=== PATIENT | male | born 1960 | race Caucasian/White ===

== ENCOUNTER → 2019-10-17 08:15 | Outpatient (BNVA) | payer OTHER, SELFPAY | PROVIDERS: Family Provider Family Medicine; PCP Family Medicine; Visit Provider Urology | DX: N39.9 Disorder of urinary system, unspecified (principal); E29.1 Testicular hypofunction; R79.89 Other specified abnormal findings of blood chemistry | CPT/HCPCS: 81001 ==

== ENCOUNTER 2020-02-15 11:51 | Emergency (ER) | payer OTHER, SELFPAY ==
[2020-02-15 12:20] VITALS: BP 172/92; PULSE 76; RESP 14; TEMP 36.7; O2SAT 98; BMI 41.5
--- NOTE | 2020-02-15 12:39 | ED_ITS ---
HPI - General Adult General: Chief complaint: General Medical Stated complaint: FLANK AND GROIN PAIN Time Seen by Provider: 02/15/20 12:27 History of Present Illness: HPI narrative: Sudden onset earlier today of right-sided flank pain radiating around to the lower abdomen and right groin. Onset (ago): hour(s) Location: back and right Radiation: non-radiation Severity: severe Pain Consistency: constant Relieving factors: none Exacerbating factors: movement Review of Systems General: Reports: 10 or more systems reviewed and unremarkable except in HPI and below PFSH ED PFSH: Medical History Low testosterone Multiple low levels confirmed. Normal PSA. TRT initiated Surgical History History of hip replacement left History of knee surgery right History of toe surgery Hx of tonsillectomy Family History Mother History of hip surgery Father Amputation below knee Social History Smoking and tobacco status: current every day smoker Alcohol intake: never Marital status: Current occupational status: retired History of recent travel: No Physical Exam Const: COMMON NORMALS: no acute distress, average body habitus, alert and well nourished EXAM LIMITATIONS: altered mental status GENERAL APPEARANCE: well kempt and ill appearing HENMT: COMMON NORMALS: normocephalic, atraumatic, hearing grossly normal bilaterally, external ears normal, EAC's normal, TM's normal bilaterally, Normal external nose present, Normal nasal mucous membranes and turbinates present, moist oral mucous membranes, oropharynx normal, dentition normal and gingiva normal HEAD & SCALP: normocephalic and atraumatic NOSE: Normal external nose present and Normal nasal mucous membranes and turbinates present EXTERNAL EAR: Yes external ears normal EXTERNAL AUDITORY CANAL: EAC's normal TYMPANIC MEMBRANE: TM's normal bilaterally Eye: COMMON NORMALS: Equal, round and reactive pupils present, EOMs intact bilaterally, conjunctivae normal, no scleral icterus, no papilledema, normal visual barbosa by confrontation and fundi normal bilaterally CONJUNCTIVA: Yes conjunctivae normal PUPIL: Yes Equal, round and reactive pupils present DIRECT OPHTHALMOSCOPY: Yes no papilledema and Yes fundi normal bilaterally Neck/C-Spine: COMMON NORMALS: full ROM, no lymphadenopathy, supple, no meningeal signs, no JVD, Thyroid normal and No carotid bruits THYROID: Thyroid normal Chest: COMMONS NORMALS: normal inspection of the chest and normal palpation of entire chest wall Resp: COMMON NORMALS: normal respiratory effort, No retractions, No use of accessory muscles, clear to auscultation bilaterally and percussion normal AUSCULTATION: clear to auscultation bilaterally PERCUSSION: percussion normal Cardio: COMMON NORMALS: no JVD, regular rate, regular rhythm, S1 normal heart sound present, S2 normal heart sound present, No gallops present (Cardio), No clicks present (Cardio), No murmurs present (Cardio), No rub (Cardio) and Peripheral pulses 2+ throughout RATE: regular rate RHYTHM: regular rhythm HEART SOUNDS: S1 normal heart sound present and S2 normal heart sound present PERIPHERAL PULSES: Peripheral pulses 2+ throughout GI: COMMON NORMALS: Normal to inspection, nondistended, normoactive bowel sounds present, Soft to palpation, non-tender, No hepatosplenomegaly present, no masses and no bruits PALPATION: Yes Soft to palpation and Yes No hepatosplenomegaly present : BLADDER/KIDNEY EXAM: Yes CVA tenderness Back/Pelvis: GENERAL BACK: Yes CVA tenderness Extremity: COMMON NORMALS: normal to inspection, full ROM, capillary refill normal, no joint enlargement, no clubbing, cyanosis or edema, no calf tenderness and no pedal edema Neuro: SENSORIUM/ORIENTATION: Yes alert and Yes somnolent MENINGEAL SIGNS: Yes no meningeal signs Psych: APPEARANCE: Yes well kempt Skin: COMMON NORMALS: no rashes or lesions noted, no wounds, no jaundice and no mottling GENERAL SKIN EXAM: no rashes or lesions noted Course Vital Signs: Vital signs: Vital Signs Temperature 98.0 F 02/15/20 12:20 Pulse Rate 76 02/15/20 12:20 Respiratory Rate 18 02/15/20 13:07 Blood Pressure 172/92 02/15/20 12:20 Pulse Oximetry 98 02/15/20 12:20 [facility] - General Adult Lab Data: Labs: Lab Results 02/15/20 Range/Units 12:19 Urine Color Yellow (Yellow) Urine Appearance Cloudy (CLEAR) Urine pH 5 (5-7) Ur Specific Gravit y 1.025 (1.005-1.030) Urine Protein Neg (Negative) Urine Glucose (UA) 2+ (Normal) Urine Ketones 2+ H (Negative) Urine Blood 3+ H (Negative) Urine Nitrate Negative (Negative) Urine Bilirubin 1+ H (NEGATIVE) Urine Urobilinogen 1 H (Negative) mg/dL Ur Leukocyte Zunilda ase Negative (Negative) Urine RBC None (0-2) /hpf Urine WBC None (0-5) /hpf Ur Squamous Epith Cells 0-4 H (0-5) Calcium Oxalate Cr ystal 0-4 H /hpf Amorphous Sediment 3+ Urine Bacteria 2+ H (NONE) Discharge Plan Discharge Patient Disposition: Home, Self-Care Clinical Impression: Renal colic Urolithiasis Qualifiers: Urinary calculus location: bladder Qualified Code(s): N21.0 - Calculus in bladder Condition: Stable Prescriptions: New Flomax 0.4 mg capsule 0.4 mg PO DAILY Qty: 20 RF: 0 No Action carisoprodol [Soma] 350 mg tablet 350 mg PO BEDTIME RF: 0 tramadol 50 mg tablet 50 mg PO TID PRN (Reason: Pain) RF: 0 albuterol sulfate [ProAir HFA] 90 mcg/actuation HFA aerosol inhaler 2 puff INHALATION Q4H PRN (Reason: Shortness Of Breath) RF: 0 testosterone cypionate [Depo-Testosterone] 200 mg/mL oil 200 mg IM .Q 10 Days Qty: 8 RF: 0 sildenafil 100 mg tablet 100 mg PO DAILY PRN (Reason: sexual activity) Qty: 20 RF: 12 Benadryl 25 mg Capsule 50 - 75 mg PO PRN RF: 0 Discharge Orders: Discharge Order (Routine); Ordered 02/15/20 Ordered By: Artur Woodson Referrals: Lonny Porter MD [Primary Care Provider] - Patient Instructions: Cholecystitis (ED), Abdominal Pain (ED) Coding Level of Care Code ED Commissary Assistant for Chg Fwd Exam Comprehensive
--- NOTE | 2020-02-15 12:51 | CT_ITS ---
WS: [id number] CT scan of the abdomen and pelvis without Oral and IV contrast. Additional two-dimensional coronal a nd sagittal reconstruction was performed. 02/15/2020 Clinical Data: renal colic Comparison: None. DLP: 1586.[address] scans at [facility] use at least one of these dose optimization techniques: automat ed exposure control; mA and/or kV adjustment per patient size (includes targeted exams where dose is matched to clinical indication); or iterative reconstruction. Findings: The lower lungs show no nodules, masses or effusions. There is minimal coronary artery calcification. The liver, gallbladder, spleen, adrenal glands and pancreas are normal. The kidneys show no cysts, masses, calcifications or hydronephrosis. No ureteral calculi are seen The abdominal aorta is normal in size with calcification in the wall.. No appendicitis or diverticulitis is seen. No abscess, adenopathy, ascites, mass, obstruction or free air is seen. The stomach, small bowel and colon show no abnormalities. The bladder is unremarkable. No inguinal hernia is seen. There is prostate enlargement with calcifica tion. A total left hip replacement is seen. The lower thoracic and all lumbar vertebral bodies demonstrate osteoarthritis and there is degenerati ve disc disease at multiple levels. CT/CT kidney stone 79950 Impression: 1. Negative for renal or ureteral calculi. 2. Negative for acute intra-abdominal or pelvic abnormalities.
[2020-02-15 13:03] LABS: Add Urine Microscopic? YES; Bilirubin Urine 1+ (NEGATIVE); Blood Urine 3+ (Negative); Glucose Urine UA 2+ (Normal); Ketones Urine 2+ (Negative); Leukocyte Esterase Urine Negative (Negative); Nitrate Urine Negative (Negative); Protein Urine Neg (Negative); Specific Gravity, Urine 1.025 (1.005-1.030); Urine Appearance Cloudy (CLEAR); Urine Color Yellow (Yellow); Urobilinogen Urine 1 mg/dL (Negative); pH Urine 5 (5-7)
[2020-02-15 13:05] LABS: Add Urine Culture? Yes; Amorphous Sediment Urine 3+; Bacteria Urine 2+; Calcium Oxalate Crystals Urine 0-4 /hpf; Squamous Epithelial Cell Urine 0-4 (0-5)
[2020-02-15 13:07] VITALS: RESP 18
[2020-02-15] MEDS: morphine 4 mg/mL SDV 1 mL IVP (13:07)
[2020-02-15] MEDS: ketorolac 30 mg/mL INJ IVP (13:08)
[2020-02-15] MEDS: ondansetron 2 mg/ML SDV 2 mL 4 MG IVP (13:08)
[2020-02-15 15:14] VITALS: BP 163/98; PULSE 78; RESP 18; O2SAT 95
== END 2020-02-15 15:16 | disposition home or self-care (01) ==
PROVIDERS: Emergency Provider Family Medicine; PCP Family Medicine
DX: N21.0 Calculus in bladder (principal); F17.210 Nicotine dependence, cigarettes, uncomplicated
CPT/HCPCS: 12345; 74176; 81001; 87086; 96374; 96375; 99282; 99283; J1885; J2270; J2405

== ENCOUNTER → 2020-05-20 14:18 | Outpatient (BNVA) | payer OTHER, SELFPAY | PROVIDERS: PCP Family Medicine; Referring Provider Family Medicine; Visit Provider Podiatrist Foot & Ankle Surgery | DX: M79.671 Pain in right foot (principal) | CPT/HCPCS: 73630 ==

== ENCOUNTER 2020-06-04 13:45 | Outpatient (CLI) | payer OTHER, SELFPAY ==
--- NOTE | 2020-06-04 14:15 | USCV_ITS ---
Luigi Palma Age: 60 Gender: M : 1960 Exam Date: 06/04/2020 14:02 Ordering Phys: Cassius Burch DPM Technologist: Exam Location: [facility] – [place] Indication: NON HEALING ULCER RIGHT LEFT Brachial 169.00 mmHg Brachial 159.00 mmHg Pressure (mmHg) Waveform Pressure (mmHg) Waveform 182.00 Above Knee 191.00 Below Knee 192.00 VOLCANOLOGY PROFESSOR 210.00 181.00 DPA 151.00 1.14 Ankle/Brachial Index 1.24 102.00 Pre-Exercise Toe Pressure 164.00 0.60 Pre-Exercise Toe/Brachial Index 0.97 FINDINGS Normal resting ABIs bilaterally Slightly diminished resting TBI on the right side Normal resting TBI on the left side CONCLUSIONS Features of mild peripheral artery disease on the right side. No significant arterial obstruction on the left side Dr Trell Soto MD FAC (Electronically Signed) Final Date: 04 June 2020 16:14 S
== END 2020-06-04 13:46 | disposition home or self-care (01) ==
LOC: US 13:47
PROVIDERS: PCP Family Medicine; Visit Provider Podiatrist Foot & Ankle Surgery
DX: R09.89 Other specified symptoms and signs involving the circulatory and respiratory systems (principal); L97.829 Non-pressure chronic ulcer of other part of left lower leg with unspecified severity; L97.819 Non-pressure chronic ulcer of other part of right lower leg with unspecified severity
CPT/HCPCS: 93923

== ENCOUNTER → 2022-07-22 10:42 | Outpatient (BNVA) | payer OTHER, SELFPAY | PROVIDERS: PCP Family Medicine; Visit Provider Family Medicine | DX: R79.89 Other specified abnormal findings of blood chemistry (principal); Z12.5 Encounter for screening for malignant neoplasm of prostate; R35.0 Frequency of micturition; Z13.220 Encounter for screening for lipoid disorders; E11.9 Type 2 diabetes mellitus without complications; Z51.81 Encounter for therapeutic drug level monitoring; J40 Bronchitis, not specified as acute or chronic | CPT/HCPCS: 80053; 80061; 83036; 84153; 84403; 85025; 86141 ==

== ENCOUNTER 2022-11-04 20:00 | Outpatient (CLI) | payer OTHER, SELFPAY | END 2022-11-04 20:01 | disposition home or self-care (01) | LOC: SLEEP 11-05 05:19 | PROVIDERS: PCP Family Medicine; Visit Provider Family Medicine | DX: G47.33 Obstructive sleep apnea (adult) (pediatric) (principal) | CPT/HCPCS: 95810 ==

== ENCOUNTER 2024-04-10 13:21 | Observation (INO) | payer OTHER, SELFPAY ==
[2024-04-10] VITALS (16 sets, daily range): BP systolic 129–176; BP diastolic 72–85; PULSE 64–85; RESP 12–18; TEMP 36.7–37.1; O2SAT 93–97; BMI 35.9; BMI 37.4
--- NOTE | 2024-04-10 13:22 | XRR_ITS ---
PROCEDURE INFORMATION: Exam: XR Chest Exam date and time: 04/10/2024 1:30 PM Age: 63 years old Clinical indication: Pain; Angina pectoris; Additional info: Cp TECHNIQUE: Imaging protocol: Radiologic exam of the chest. Views: 1 view. COMPARISON: No relevant prior studies available. FINDINGS: Lungs: Unremarkable. No consolidation. Pleural spaces: Unremarkable. No pleural effusion. No pneumothorax. Heart/Mediastinum: Unremarkable. No cardiomegaly. Bones/joints: Unremarkable. XR/XR chest 1V portable [id number] IMPRESSION: No acute findings.
--- NOTE | 2024-04-10 13:26 | ECG_ITS ---
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 Measurements Intervals [place] Rate: 88 P: 48 [place]: 176 QRS: 54 QRSD: 89 T: 61 QT: 359 QTc: 435 Interpretive Statements SINUS RHYTHM SEPTAL MYOCARDIAL INFARCTION , OF INDETERMINATE AGE [40+ ms Q WAVE IN V1/V2] No previous ECG available for comparison Electronically Signed On 04-10-2024 14:11:34 CDT by Vijay Stratton M.D. [email or web address] [email or web address]/store/[id number] f
--- NOTE | 2024-04-10 13:33 | ED_ITS ---
HPI - Chest Pain 2 General: Chief Complaint: Chest Pain Stated Complaint: cp Time Seen by Provider: 04/10/24 13:23 Source: patient and EMS Mode of arrival: EMS Limitations: no limitations History of Present Illness: 63-year-old male states that he was sitt ing at home just prior to arrival he started having chest pain he states is a pressure type pain he had some nausea and diaphoresis states his pains improved currently 2 out of 10 patient received nitro aspirin and route. He denies any fevers denies any abdominal pain. Associated symptoms: Reports nausea; Deny abdominal pain, dyspnea or fever(s) Review of Systems 2 Const: Denies: fever(s), chills, body aches or change in appetite ENMT: Denies: throat pain or dental pain Card: Reports: chest pain Resp: Denies: dyspnea GI: Reports: nausea; Denies: abdominal pain or diarrhea Musc: Denies: neck pain or back pain Skin/Breast: Denies: rash Neuro: Denies: headache(s) Physical Exam 2 Const: COMMON NORMALS: patient oriented x3 HENMT: COMMON NORMALS: normocephalic and atraumatic HEAD & SCALP: n ormocephalic and atraumatic Neck/C-Spine: COMMON NORMALS: full ROM and supple Chest: COMMONS NORMALS: normal inspection of the chest and normal palpation of entire chest wall Resp: COMMON NORMALS: normal respiratory effort, No retractions, No use of accessory muscles and clear to auscultation bilaterally AUSCULTATION: clear to auscultation bilaterally Cardio: COMMON NORMALS: regular rate, regular rhythm and No murmurs present (Cardio) RATE: regular rate RHYTHM: regular rhythm GI: COMMON NORMALS: Normal to inspection, nondistended, normoactive bowel sounds present, Soft to palpation, non-tender and no masses PALPATION: Yes Soft to palpation Extremity: COMMON NORMALS: normal to inspection and full ROM Neuro: COMMON NORMALS: patient oriented x3, moves all extremities and no focal motor deficits Psych: COMMON NORMALS: mental status grossly normal, Normal thought process present and cooperative THOUGHT PROCESS: Normal thought process present Skin: COMMON NORMALS: no rashes or lesions noted and no wounds GENERAL SKIN EXAM: no rashes or lesions noted Course 2 Vital Signs: Vital signs: Vital Signs Temperature 98.1 F 04/10/24 13:23 Pulse Rate 74 04/10/24 15:18 Respiratory Rate 17 04/10/24 15:00 Blood Pressure 165/83 04/10/24 15:18 Pulse Oximetry 95 04/10/24 15:00 Oxygen Delivery Me thod Room Air 04/10/24 15:00 MDM - Chest Pain Medical Decision Making Patient presents here with chest pain EKG shows no ST elevation initial troponin is slightly elevated we will give Lovenox spoke to the hospitalist will admit for ACS rule out he has no signs of dissection or pulmonary emboli Medical Records I reviewed the patient's medical records. Lab Data I reviewed the patient's lab results. 04/10/24 14:09 04/10/24 13:52 Radiology Impressions Chest X-Ray 04/10/24 13:22 IMPRESSION: No acute findings. Laboratory Results WBC 15.54 10^3/uL (3.29-11.43) H 04/10/24 14:09 RBC 5.79 10^6/uL (3.85-5.65) H 04/10/24 14:09 Hgb 16.80 g/dL (11.27-16.99) 04/10/24 14:09 Hct 51.5 % (37-53) 04/10/24 14:09 MCV 88.9 fl (82-101) 04/10/24 14:09 MCH 29.0 pg (27-33) 04/10/24 14:09 MCHC 32.6 g/dL (30-55) 04/10/24 14:09 RDW 14.8 % (12.1-15.1) 04/10/24 14:09 Plt Count 215 10^3/cmm (157-399) 04/10/24 14:09 MPV 10.7 fL (7.4-10.4) H 04/10/24 14:09 Neut % (Auto) 84.7 % 04/10/24 14:09 Lymph % (Auto) 6.6 % 04/10/24 14:09 Gem % (Auto) 6.6 % 04/10/24 14:09 Eos % (Auto) 0.7 % 04/10/24 14:09 Baso % (Auto) 0.8 % 04/10/24 14:09 Neut # (Auto) 13.16 10^3/uL (1.8-7.7) H 04/10/24 14:09 Lymph # (Auto) 1.0 10^3/uL (0.8-4.8) 04/10/24 14:09 Gem # (Auto) 1.0 10^3/uL (0.2-0.9) H 04/10/24 14:09 Eos # (Auto) 0.1 10^3/uL (0.0-0.8) 04/10/24 14:09 Baso # (Auto) 0.1 10^3/uL (0.0-0.1) 04/10/24 14:09 Nucleated RBC % (auto) 0 % 04/10/24 14:09 Nucleated RBCs # 0.0 /100WBC 04/10/24 14:09 PT 12.70 SECONDS (12.1-14.9) 04/10/24 14:09 INR 0.92 (0.8-1.2) 04/10/24 14:09 Sodium 132 mmol/L (136-145) L 04/10/24 13:52 Potassium 4.6 mmol/L (3.5-5.1) 04/10/24 13:52 Chloride 100 mmol/L (98-107) 04/10/24 13:52 Carbon Dioxide 18 mmol/L (22-29) L 04/10/24 13:52 Anion Gap 18.6 (5-19) 04/10/24 13:52 BUN 18 mg/dL (8-23) 04/10/24 13:52 Creatinine 0.9 mg/dL (0.7-1.2) 04/10/24 13:52 GFR Calculation 85.0 mL/min (90-130) L 04/10/24 13:52 Glucose 172 mg/dL (65-115) H 04/10/24 13:52 Calculated Osmolality 280 mOsm/kg (285-295) L 04/10/24 13:52 Calcium 8.8 mg/dL (8.5-10.5) 04/10/24 13:52 Total Bilirubin 0.3 mg/dL (0.15-1.2) 04/10/24 13:52 AST 20 U/L (0-40) 04/10/24 13:52 ALT 25 U/L (0-41) 04/10/24 13:52 Alkaline Phosphatase 96 U/L (40-130) 04/10/24 13:52 Troponin T Baseline 40 ng/L (0-15) H 04/10/24 13:52 Total Protein 6.4 g/dL (6.6-8.7) L 04/10/24 13:52 Albumin 4.2 g/dL (3.5-5.2) 04/10/24 13:52 Globulin 2.2 g/dL (1.3-4.6) 04/10/24 13:52 Lipase 15 U/L (13-60) 04/10/24 13:52 No radiology studies performed this visit EKG Data EKG 1: I personally reviewed and interpreted this EKG as follows: EKG interpretation date: 04/10/24 EKG interpretation time: 13:26 Interpretation: nsr hr 88 no stemi qrs 89 qtc 405 Discharge Plan Discharge Admit Provider: Rafa Reaves Condition: Stable Coding Level of Care Code ED Premium Card Cancellation Clerk for Chg Chriss
[2024-04-10] MEDS: ondansetron 2 mg/ML SDV 2 mL 4 MG IVP (13:37)
[2024-04-10] MEDS: morphine 4 mg/mL SDV 1 mL IVP (13:39)
--- NOTE | 2024-04-10 13:42 | ECG_ITS ---
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 Measurements Intervals [place] Rate: 72 P: 44 [place]: 176 QRS: 54 QRSD: 89 T: 60 QT: 384 QTc: 422 Interpretive Statements SINUS RHYTHM WITH MARKED SINUS ARRHYTHMIA ANTERIOR MYOCARDIAL INFARCTION , PROBABLY OLD [40+ ms Q WAVE AND/OR ST/T ABNORMALITY IN V3/V4] No previous ECG available for comparison Electronically Signed On 04-10-2024 14:17:25 CDT by Vijay Stratton M.D. [id number]
[2024-04-10 14:18] LABS: Basophils # 0.1 10^3/uL (0.0-0.1); Basophils % 0.8 %; Eosinophils # 0.1 10^3/uL (0.0-0.8); Eosinophils % 0.7 %; Hematocrit 51.5 % (37-53); Lymphocytes % 6.6 %; Mean Corpuscular HGB Conc 32.6 g/dL (30-55); Mean Corpuscular Volume 88.9 fl (82-101); Mean Platelet Volume 10.7 fL (7.4-10.4); Monocytes % 6.6 %; Neutrophils # 13.16 10^3/uL (1.8-7.7); Neutrophils % 84.7 %; Nucleated Red Blood Cells % 0 %; Platelet Count 215 10^3/cmm (157-399); Red Blood Count 5.79 10^6/uL (3.85-5.65); Red Cell Distribution Width 14.8 % (12.1-15.1); White Blood Count 15.54 10^3/uL (3.29-11.43)
[2024-04-10 14:29] LABS: INR 0.92 (0.8-1.2)
--- NOTE | 2024-04-10 14:39 | PC.PHAR ---
PT KEEPS LIST ON CELL PHONE [facility]
[2024-04-10 14:48] LABS: Alanine Aminotransferase 25 U/L (0-41); Albumin Level 4.2 g/dL (3.5-5.2); Alkaline Phosphatase 96 U/L (40-130); Blood Urea Nitrogen 18 mg/dL (8-23); Calcium 8.8 mg/dL (8.5-10.5); Carbon Dioxide 18 mmol/L (22-29); Chloride 100 mmol/L (98-107); Creatinine Clr Calc Pharmacy 104.5694; Globulin 2.2 g/dL (1.3-4.6); Glucose 172 mg/dL (65-115); Lipase 15 U/L (13-60); Osmolality Calculated 280 mOsm/kg (285-295); Sodium 132 mmol/L (136-145); Total Bilirubin 0.3 mg/dL (0.15-1.2); Total Protein 6.4 g/dL (6.6-8.7); Troponin(5th) Baseline 40 ng/L (0-15)
[2024-04-10 14:49] LABS: Anion Gap 18.6 (5-19); Potassium 4.6 mmol/L (3.5-5.1)
[2024-04-10 14:50] LABS: Aspartate Amino Transferase 20 U/L (0-40)
[2024-04-10] MEDS: nitroglycerin 1 gm/inch oint Pkt 1 INCH TOPICAL (15:18)
[2024-04-10] MEDS: enoxaparin 120 mg/0.8 mL Syringe 110 MG SUBCUT (15:21)
--- NOTE | 2024-04-10 16:02 | PC.NURSE ---
report called to Manuelito 1600.
--- NOTE | 2024-04-10 17:55 | USCV_ITS ---
Luigi Palma Age: 63 Gender: M : 1960 Exam Date: 04/10/2024 19:28 Ordering Phys: Rafa Reaves MD Technologist: MUKESH [place] [facility] [place]: NSTEMI BP: 161 / 78 HR: 86 Rhythm: Sinus Technical Quality: Adequate MEASUREMENTS (Male / Female) Normal Values 2D ECHO LV Diastolic Diameter PLAX 4.3 cm 4.2 - 5.9 / 3.9 - 5.3 cm IVS Diastolic Thickness 2.2 cm 0.6 - 1.0 / 0.6 - 0.9 cm IVS Systolic Thickness 2.6 cm LVPW Diastolic Thickness 1.7 cm 0.6 - 1.0 / 0.6 - 0.9 cm LVPW Systolic Thickness 1.9 cm LVOT Diameter 2.3 cm LV Ejection Fraction 2D Teich 56.9 % LV Ejection Fraction MOD 4C 43.6 % LV Ejection Fraction MOD 2C 57.1 % LV Ejection Fraction 2C AL 56.5 % LA Diameter 4.1 cm Aorta at Sinotubular Diameter 2.8 cm IVC Diameter 2.2 cm M-MODE LA Ao Ratio MM 1.2 AV Cusp Separation MM 2.3 cm DOPPLER AV Peak Velocity 263.3 cm/s LVOT Peak Velocity 128.0 cm/s AV Area Cont Eq vti 3.6 cm squared AV Area Cont Eq pk 1.9 cm squared MV Peak Velocity 114.0 cm/s MV Area PHT 5.0 cm squared Mitral E to A Ratio 0.7 TV Peak E Velocity 39.0 cm/s PV Peak Velocity 96.0 cm/s FINDINGS Left Ventricle Left ventricular is normal size. LV systolic function is mildly reduced with EF of 40-45%. Mild global hypokinesis with mild to moderate hypokinesis of anterior wall. Grade 1 diastolic function. Right Ventricle Normal in size and function Right Atrium Normal in size Left Atrium Normal in size Mitral Valve Structurally normal mitral valve. Mild mitral regurgitation Aortic Valve Structurally normal aortic valve. Moderate aortic regurgitation. No significant stenosis. Tricuspid Valve Mild tricuspid regurgitation. Pulmonic Valve Not well visualized Pericardium Normal Aorta Normal in size IVC Appears to be normal CONCLUSIONS LV systolic function is mildly reduced with EF of 40 to 45%. Above-mentioned regional wall motion abnormalities. Grade 1 diastolic dysfunction. Mild mitral regurgitation Moderate aortic regurgitation Mild tricuspid regurgitation No comparison studies are available Michael Jalloh MD (Electronically Signed) Final Date: 11 April 2024 10:10 S
--- NOTE | 2024-04-10 17:55 | ECG_ITS ---
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 Interpretive Statements NAME OF STUDY: LEXISCAN SESTAMIBI STRESS TEST INDICATION: [NONSTEMI] Procedure: At the baseline, the blood pressure was 124/59 mmHg with a heart rate of 90 bpm. The electrocardiogram showed normal sinus rhythm, right axis deviation with normal ST and T's. The Lexiscan was infused over a period of 20 seconds. A total of 0.4 mg of Lexiscan was infused. The stress phase was continued for a total of 5 minutes. Heart rate was at the end of stress phase was 105 bpm and a blood pressure of 147/61 mmHg. The EKG at the peak infusion revealed normal sinus rhythm with no significant ST-T wave changes. Sestamibi was injected 20 seconds after the Lexiscan infusion. Blood pressure at the end of recovery phase was 135/52 mmHg with a heart rate of 102 bpm. Conclusion: 1. Normal EKG response to Lexiscan infusion 2. No Lexiscan induced chest pain or cardiac arrhythmia. 3. Normal blood pressure and heart rate response. 4. Sestamibi/sestamibi perfusion scan pending; see separate report. Electronically Signed On 04-16-2024 21:11:58 CDT by Michael Jalloh M.D. [id number]
--- NOTE | 2024-04-10 17:57 | P.HP_ITS ---
Providers/Chief Complaint 2 Admitting Physician: Rafa Reaves MD Primary Care Provider: Lonny Porter MD Chief Complaint: cp History of Present Illness Luigi Palma is a 63 year old male with past medical history of BPH, chronic smoker (1-1/2 pack/day for more than 10 years) presents to the ER today because of retrosternal chest pain radiated to bilateral jaw and left shoulder which started while he was working in his backyard and trimming his trees associated with nausea and diaphoresis getting relieved with nitro patch in the ER. Patient denies any personal history of CAD or CVA but does have a history of CVA and grandmother. Denies any chest pain currently. Review of Systems 2 General: Reports: 10 or more systems reviewed and unremarkable except in HPI and below Const: Denies: fever(s), chills, body aches, change in appetite, change in weight, malaise, night sweats, diaphoresis, change in sleep pattern, daytime sleepiness or snoring Eyes: Denies: change in vision, blurry vision, photophobia, eye discomfort or eye discharge ENMT: Denies: throat pain, enlarged tonsils, hoarseness, mouth pain, oral sores, dry mouth, tinnitus, nasal congestion or post nasal drip Card: Denies: chest pain, palpitations, irregular heart rhythm, edema, swelling of feet/ankles, lightheadedness, syncope, pre-syncope, dyspnea on exertion, orthopnea, leg pain with exertion or acrocyanosis Resp: Denies: dyspnea, productive cough, non-productive cough, wheezing, stridor, pain on inspiration, change in phlegm color, hemoptysis or chest congestion GI: Denies: abdominal pain, nausea, vomiting, hematemesis, coffee ground emesis, dysphagia, heartburn, diarrhea, constipation, bloating, GI cramping, change in bowel habits, pain on defecation, hematochezia or melena : Denies: flank pain, difficulty urinating, dysuria, urinary frequency, urinary urgency, urinary hesitancy, urinary dribbling, difficulty starting urination, change in urine stream, nocturia or hematuria Musc: Denies: neck pain, back pain, extremity pain, joint pain, joint swelling, joint redness, joint stiffness or limited range of motion Neuro: Denies: headache(s), numbness in extremities, weakness in extremities, sensory changes, lack of coordination, difficulty walking, frequent falls, dizziness, vertigo, confusion, Slurred speech present, difficulty communicating thoughts or seizure-like activity Psych: Denies: anxiety, depression, mood swings, panic attacks, hopelessness or irritability Endo: Denies: polyuria, polydipsia, tired all the time, cold intolerance, excessive sweating, flushing or heat intolerance Robert/Lymph: Denies: easy bruising or easy bleeding All/Imm: Denies: tongue swelling, facial swelling or acute wheezing Medications/Allergies Home Medications Medication Instructions Recorded Confirmed Last Taken Type albuterol sulfate 90 mcg/actuation 2 puff inhalation Q4H PRN 04/10/24 04/10/24 04/10/24 History aerosol inhaler Shortness Of Breath carisoprodol 350 mg tablet 350 mg PO BEDTIME 04/10/24 04/10/24 04/09/24 History diphenhydramine HCl 25 mg capsule 75 mg PO BEDTIME SLEEP 04/10/24 04/10/24 04/09/24 History (Benadryl) fluticasone propionate 115 2 puff inhalation Q12H 04/10/24 04/10/24 04/10/24 History mcg-salmeterol 21 mcg/actuation HFA inhaler (Advair HFA) ropinirole 0.5 mg tablet 0.5 mg PO BEDTIME 04/10/24 04/10/24 04/09/24 History sildenafil 100 mg tablet 100 mg PO PRN PRN Erectile 04/10/24 04/10/24 Unknown History Dysfunction tamsulosin 0.4 mg capsule 0.4 mg PO BEDTIME 04/10/24 04/10/24 04/09/24 History testosterone cypionate 200 mg/mL 200 mg IM .Q10D 04/10/24 04/10/24 03/25/24 History intramuscular oil tramadol 50 mg tablet 50 mg PO TID PRN Pain 04/10/24 04/10/24 04/10/24 History Allergies Allergy/AdvReac Type Severity Reaction Status Date / Time cephalexin [From Keflex] Allergy ALGY-Rash Verified 04/10/24 13:34 Penicillins Allergy ALGY-Rash Verified 04/10/24 13:34 PFSH Acute 2 PFSH: Medical History (Updated 04/11/24 @ 10:27 by Michael Jalloh M.D) Smoker Hammer toe Low testosterone in male BPH (benign prostatic hyperplasia) Surgical History Hip joint replacement status Vitals/I&O/Wt Last Vital Signs Temp 98.1 F 04/10/24 13:23 Pulse 83 04/10/24 15:45 Resp 16 04/10/24 15:45 BP 170/83 04/10/24 15:45 Pulse Ox 93 04/10/24 15:45 O2 Del Method Room Air 04/10/24 16:23 Weight last 48 hrs Weight 118.388 kg Weight 113.398 kg Physical Exam 2 Narrative: General: No acute distress, AO x3, obese HEENT: PERRLA, pupils bilaterally equal and reactive Chest: Normal vesicular breath sounds, no added sounds, equal good air entry bilaterally CVS: S1-S2 regular, no murmurs, no tachycardia, no gallops, no rubs Abdomen: Soft, nontender, no organomegaly, bowel sounds present Neuro: No focal deficits, no facial deformity, AO x3, power 5/5 in all limbs Data 04/11/24 03:29 04/11/24 03:29 A&P Assessment and plan (1) NSTEMI (non-ST elevated myocardial infarction): High concerns for non-ST elevation OK. Typical chest pain. Baseline troponin 40. Monitor troponin cycled. Aspirin 324 mg given in the ER. Followed by 81 mg daily, statin 80 mg daily. Check echocardiogram, A1c, lipid panel. N.p.o. after midnight for Lexiscan stress test. Full dose Lovenox 1 mg/kg body weight every 12 hourly. Nitropatch as needed. Plan High blood pressure: No past history of hypertension. Goal blood pressure less than 140/90 mmHg. Blood pressure is elevated for now. Losartan 50 mg oral daily. Uptitrate blood pressure medications as per goal blood pressures. Full code Cardiac diet, n.p.o. after midnight Protonix OPD prophylaxis Full dose Lovenox will be sufficient for DVT prophylaxis Attestations 2 Medical Necessity Statement*: Admission under observation for management chest pain with high concerns for non-ST elevation OK Coding Level of Care Code Acute Code for [facility] Fwd Diagnoses NSTEMI (non-ST elevated myocardial infarction) I21.4
[2024-04-10] MEDS: losartan 50 mg Tablet PO (18:46)
[2024-04-10 19:47] LABS: Procalcitonin 0.04 ng/mL (0-0.5); Thyroid Stimulating Hormone 1.73 uIU/mL (0.27-4.20); Vitamin B12 523 pg/mL (232-1245)
[2024-04-10 19:59] LABS: Iron 35 ug/dL (59-158)
[2024-04-10] MEDS: tamsulosin 0.4 mg Capsule PO (20:14)
[2024-04-10] MEDS: ropinirole 0.25 mg Tablet 0.5 MG PO (20:14)
--- NOTE | 2024-04-10 20:31 | ECG_ITS ---
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 Measurements Intervals Friendly Rate: 71 P: 23 MT: 140 QRS: 82 QRSD: 96 T: 90 QT: 390 QTc: 425 Interpretive Statements SINUS RHYTHM WITH OCCASIONAL ECTOPIC PREMATURE COMPLEXES LOW QRS VOLTAGE IN PRECORDIAL LEADS [QRS DEFLECTION < 1.0 mV IN CHEST LEADS] POSSIBLE ANTERIOR MYOCARDIAL INFARCTION , OF INDETERMINATE AGE [30 ms Q WAVE IN V3/V4, OR R < 0.2 mV IN V4] Compared to ECG 04/10/2024 13:42:37 Low QRS voltage now present Sinus arrhythmia no longer present Myocardial infarct finding still present Electronically Signed On 04-11-2024 7:53:09 CDT by Michael Jalloh M.D. [id number]
[2024-04-10] MEDS: budesonide 0.5 mg/2 mL Neb INHALATION (20:41)
[2024-04-10] MEDS: ipratropium-albuterol 3 mL Neb INHALATION (20:41)
--- NOTE | 2024-04-10 20:59 | PC.NURSE ---
Addendum entered by Kristal Tompkins RN 04/10/24 21:02: Spoke with Dr Reaves to verify. Original Note: Verified Aspirin 325mg PO dose due now. Patient received 324mg aspirin in route in ambulance. Ok to not give now dose. Will receive 81mg daily starting tomorrow.
[2024-04-10] MEDS: atorvastatin 40 mg Tablet 80 MG PO (21:04)
[2024-04-10 21:10] LABS: Troponin 5 6HR 350.5 ng/L (0-15); Troponin 5 6HR Delta 310.5 ng/L (0-12)
[2024-04-10 21:36] LABS: Glucose Point of Care 112 mg/dL (70-110)
[2024-04-10 22:39] LABS: Percent Saturation 9.2 % (20-50); Total Iron Binding Capacity 379 mcg/dl; Unsaturated Iron Binding 344 ug/dL (112-347)
[2024-04-11] VITALS (15 sets, daily range): BP systolic 110–178; BP diastolic 55–87; PULSE 78–105; RESP 17–25; TEMP 36.6–37; O2SAT 92–98
[2024-04-11 02:02] LABS: Charge for UA Resulting for Rev
[2024-04-11 02:08] LABS: Bilirubin Urine Negative (Negative); Blood Urine Trace (Negative); Glucose Urine UA Negative (Normal); Ketones Urine Trace (Negative); Leukocyte Esterase Urine Negative (Negative); Nitrate Urine Negative (Negative); Protein Urine Negative (Negative); Specific Gravity, Urine 1.011 (1.005-1.030); Urine Appearance Clear (CLEAR); Urine Color Yellow (Yellow); Urobilinogen Urine 0.2 mg/dL (Negative)
[2024-04-11 02:13] LABS: Bacteria Urine None Seen /hpf; RBC Urine 0-2 /hpf (0-2); Squamous Epithelial Cell Urine 0-5 /hpf (0-5); WBC Urine 0-5 /hpf (0-5)
[2024-04-11 02:16] LABS: Add Urine Culture? No
[2024-04-11] MEDS: enoxaparin 120 mg/0.8 mL Syringe SUBCUT ×2 (02:53→15:33)
[2024-04-11 05:00] LABS: Basophils # 0.1 10^3/uL (0.0-0.1); Basophils % 0.7 %; Eosinophils # 0.2 10^3/uL (0.0-0.8); Eosinophils % 1.1 %; Hematocrit 47.6 % (37-53); Lymphocytes # 1.7 10^3/uL (0.8-4.8); Lymphocytes % 12.5 %; Mean Corpuscular HGB Conc 32.8 g/dL (30-55); Mean Corpuscular Hemoglobin 28.7 pg (27-33); Mean Corpuscular Volume 87.7 fl (82-101); Mean Platelet Volume 10.5 fL (7.4-10.4); Monocytes # 1.7 10^3/uL (0.2-0.9); Monocytes % 12.4 %; Neutrophils # 9.97 10^3/uL (1.8-7.7); Neutrophils % 72.8 %; Nucleated Red Blood Cells % 0 %; Platelet Count 214 10^3/cmm (157-399); Red Blood Count 5.43 10^6/uL (3.85-5.65); Red Cell Distribution Width 14.7 % (12.1-15.1); White Blood Count 13.69 10^3/uL (3.29-11.43)
[2024-04-11 05:10] LABS: Estmated Average Glucose 117; Hemoglobin A1C 5.7 % (4.0-6.0)
[2024-04-11 05:22] LABS: Alanine Aminotransferase 41 U/L (0-41); Albumin Level 3.6 g/dL (3.5-5.2); Alkaline Phosphatase 87 U/L (40-130); Anion Gap 15.8 (5-19); Aspartate Amino Transferase 167 U/L (0-40); Blood Urea Nitrogen 19 mg/dL (8-23); Calcium 8.7 mg/dL (8.5-10.5); Carbon Dioxide 23 mmol/L (22-29); Chloride 103 mmol/L (98-107); Creatinine Clr Calc Pharmacy 120.7529; Globulin 2.5 g/dL (1.3-4.6); Glomerular Filtration Rate 97.3 mL/min (90-130); Glucose 105 mg/dL (65-115); Magnesium 2.2 mg/dL (1.7-2.3); Osmolality Calculated 289 mOsm/kg (285-295); Phosphorus 3.3 mg/dL (2.5-4.5); Potassium 3.8 mmol/L (3.5-5.1); Sodium 138 mmol/L (136-145); Total Bilirubin 0.2 mg/dL (0.15-1.2); Total Protein 6.1 g/dL (6.6-8.7)
[2024-04-11 05:29] LABS: Chol HDL Ratio 3.26 mg/dL (1.0-5.00); Cholesterol 111 mg/dL (0-200); HDL Cholesterol 34 mg/dL (60-100); LDL Cholesterol Calculated 42 mg/dL (50-129); LDL HDL Ratio 1.24 RATIO (0.00-3.22); Triglycerides 177 mg/dL (0-150)
[2024-04-11 06:28] LABS: Glucose Point of Care 125 mg/dL (70-110)
[2024-04-11 06:51] LABS: Folate Level > 20.0 ng/mL (4.5-32.2)
[2024-04-11] MEDS: regadenoson 0.4 Mg/5 ml Syringe IVP (07:14)
--- NOTE | 2024-04-11 08:52 | PC.CHAP ---
Pastoral Care Encounter/Spiritual Assessment Type of Contact [x] Declined physician office nurse visit [] Patient/Family/Request visit [] Outpatient visit [] Follow-up visit [] Physician referral [] Code/Alert [] Routine visit [] Staff referral [] Actively dying [] Patient sleeping [] Family support [] [] Out of room [] Palliative care [] [] Receiving care in room [] Pre-surgical visit [] Trauma [] Long length of stay [] ICU visit [] Other: Relational/Emotional Strength [] Patient feels connected with others/family/visitors/staff [] Distress [x] Loneliness/isolation [] Abandonment Spirituality of Patient [] Person of Freda [] Attends Congregation of their Freda [] Believes in Prayer [] Reads Bible or Bahai materials [x] There are Spiritual issues to be addressed Video Software Engineer Interventions [] Prayer [] Active listening [] Non-anxious presence [] Spiritual/emotional support [] Crisis/trauma care [] Spiritual counseling [] Bereavement support [] Provided bereavement packet [] Provided Bible/devotional materials [] Provided toy/stuffed animal, coloring book to patient or family member [] Provided Communion [] Anointing/Colton [] Salvation [x] Completed spiritual assessment [] Other: Impact on Illness or Injury [] Angry [] Fearful [] Anxious [] Often cries [] Exhaustion [] Unable to work [] Unable to attend mormon [] Unable to walk/stand [] Unable to read [] Unable to drive [] Unable to eat/drink [] Unable to sleep [] Unable to be with family [] Patient intubated [] Other: Summary Time spent with patient Brief. Refused Video Software Engineer visit.
--- NOTE | 2024-04-11 10:14 | XACV_ITS ---
Exam Room: [facility] Ht: 178 cm Wt: 119 kg BSA: 2.48 m2 Gender: Male : 1960 Any Known Allergies: Other Exam Priority: Routine Indication(s): - Positive nuclear perfusion study Procedure(s): Procedure Description: Diagnostic procedure Procedure Description: PCI procedure Procedure Description: Coronary IVUS Procedure Description: Drug Eluting Coronary Stent Procedure Description: PTCA Procedure Description: Miscellaneous Procedure Description: ACT Procedure Description: Coronary Angiography Procedure Description: Pressure Wire Diagnostic Cath Status: Urgent Diagnostic Findings * INDICATION: NSTEMI/ LV Dysfunction/ Abnormal stress test. * Left Main has no significant disease. * Proximal Right Coronary Artery: total occlusion, TERESA: 0 flow. Good collaterals from the left system.. * Mid Circumflex: significant 80-85% 2 serial stenosis, TERESA: 3 flow. * 1st Diagonal: critical 95% stenosis, TERESA: 3 flow. Large sized vessel. Culprit vessel for NSTEMI. * Proximal Left Anterior Descending: mild 40% stenosis, TERESA: 3 flow. * Coronary angiography shows right dominance. PCI Status: Urgent PCI Indication: NSTE - ACS Interventional Findings * Procedure detail: We engaged left main artery with XB 3.5 guide catheter. IV heparin was administered to maintain anticoagulation. After normalization IFR wire was advanced into distal LAD. It was found to be nonischemic with a value of 0.93. We then proceeded with intervention of diagonal artery. Guidewire was advanced into distal diagonal artery. We predilated the stenosis with 2.5 x 12 mm semicompliant balloon. This was followed by placement of 2.75 x 15 mm resolute Frankie drug-eluting stent. At this time final angiogram showed excellent stent expansion and no residual stenosis. We then advanced the wire into distal left circumflex artery. We predilated stenosis with 3.5 x 20 mm semicompliant balloon. This was followed by placement of 4.0 x 30 mm resolute Frankie drug-eluting stent. IVUS was performed that showed some areas of underexpansion. We postdilated the stent with 4.0 x 12 mm NC balloon. At this time final angiogram was performed that showed excellent stent expansion, no residual stenosis and TERESA III flow. Guidewire and guide catheter were removed. Patient left the [facility] in a stable condition.. * Mid Circumflex: 80% stenosis treated with a AB TREK 3.50X20 RX BALLOON, MDT R FRANKIE 4.0X30 CONNER, and MDT NC EUPHORA RX [id number] BALLOON. 0% residual stenosis, TERESA: 3 flow. * 1st Diagonal: 95% stenosis treated with a AB TREK 2.50X12 RX BALLOON, and MDT R FRANKIE 2.75X15 CONNER. 0% residual stenosis, TERESA: 3 flow. Conclusions 1. Severe multivessel CAD. Status post successful revascularization of diagonal artery with 1 stent. S/p successful revascularization of circumflex artery with 1 stent. RCA HARMONICA MAKER with good collaterals from left system. iFR of LAD is negative for ischemia.. 2. Mid Circumflex was treated with a Balloon, Drug Eluting Stent, and Balloon. 3. 1st Diagonal was treated with a Balloon, and Drug Eluting Stent. Recommendations * Dual antiplatelet therapy with aspirin and plavix. * High intensity statin therapy. * Outpatient cardiology follow up in 4 weeks. Interventional RX Recommendation: PCI w/o planned CABG Diagnostic RX Recommendation: PCI w/o planned CABG Anticoagulation: Heparin Pressures Phase:Rest AO : 116 / 84 ( 100 ) @ 12:05:00 PM 129 / 94 ( 112 ) @ 12:08:00 PM 156 / 100 ( 126 ) @ 12:18:00 PM 166 / 96 ( 123 ) @ 12:27:00 PM 96 / 57 ( 74 ) @ 12:34:00 PM 163 / 100 ( 127 ) @ 12:35:00 PM 157 / 106 ( 129 ) @ 12:39:00 PM 173 / 149 ( 133 ) @ 12:54:00 PM 176 / 90 ( 126 ) @ 1:00:00 PM Clinical Evaluation EBL: 5mL-10mL Procedural Details Procedure Consent Obtained. Current Diagnosis : NSTEMI. Pre-Procedure Time Out. Identified patient by full name and date of as verbalized by the patient/guarantor. Does the consent match the physician's order: Yes. Accurate & Complete Informed Consent: Yes. Inpatient/Outpatient History & Physical on Chart: Yes. If H&P is completed, is and addenduem needed: No; If yes, is the addendum complete: N/A. Visualize and Verify Site with Patient/Guarantor: N/A. Relevant Radiology Images available: Yes. Pre-op teaching completed and patient verbalized understanding. The risks, benefits, and alternatives of sedation and/or procedure were discussed by physician. The patient agrees to continue. Procedure started. Physician arrived. [facility] Clinical Fraility Score: 3: Managing Well. [facility] Indications: ACS > 24 hours. Chest Pain Symptom Assessment: Typical Angina Symptoms. Correct patient, site and procedure confirmed by cath team. Current diagnosis: NSTEMI. PERRLA. 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 Lungs clear x 5 lobes. IV Site on Arrival: 20 gauge in the left hand. IV Fluids: 0.9% NaCl at KVO. 0 mL infused prior to rn labor and delivery. Oxygen started at 2liters/min via nasal canula. right groin was prepped with chloroprep then draped in the usual sterile fashion. right radial was prepped with chloroprep then draped in the usual sterile fashion. Baseline sample Acquired. HR: 78 BPM. Physician scrubbed in. Immediate Pre-Procedure Time Out. Correct Patient: Yes; Correct Procedure: Yes; Correct Site: Yes; Correct Patient Position: Yes; Correct Supplies: Yes; Dried Flammable Prep: Yes; Blood Products Available: N/A;. Lidocaine 1% infiltrated to the right radial. Arterial access obtained. A 5 moroccan TIG catheter in over wire. Multiple views taken of left coronary artery. Catheter redirected to the RCA. A view taken of the right coronary artery. Physician review of cine films. Catheter removed over the exchange wire. 6 moroccan XB 3.5 guide catheter was inserted over the wire. IFR guidewire was advanced through the guide catheter to lesion in the prox LAD. Wire out. A new IFR guidewire was advanced through the guide catheter to lesion in the prox LAD. IFR Results: 0.93. Runthrough guidewire was advanced through the guide catheter to lesion in the diaganol. IFR wire out. Inflation number : 1 A AB TREK 2.50X12 RX BALLOON was prepped and advanced across the 1st Diag , then inflated to 8 WALESKA for 0:06 seconds. Inflation number: 2 The AB TREK 2.50X12 RX BALLOON was reinflated across the 1st Diag, to 10 WALESKA for 0:08 seconds. Balloon out. Inflation Number : 3 A MDT R FRANKIE 2.75X15 CONNER -Lot Number# _[id number] EXP: 05/12/2026 was prepped and advanced across the 1st Diag. The stent was deployed at 12 WALESKA for 0:18 seconds. Stent balloon out over wire. Results checked. Wire redirected to the CX. ACT drawn. Results out of range high seconds. Therapeutic limits - pre-heparin administration 90-150 seconds and monitoring heparin during a vascular procedure >250 seconds. Inflation number : 1 A AB TREK 3.50X20 RX BALLOON was prepped and advanced across the Mid CX , then inflated to 8 WALESKA for 0:14 seconds. Inflation number: 2 The AB TREK 3.50X20 RX BALLOON was reinflated across the Mid CX, to 10 WALESKA for 0:13 seconds. Balloon out. Results checked. Inflation Number : 3 A MDT R FRANKIE 4.0X30 CONNER -Lot Number# _[id number] EXP: 08/20/2024 was prepped and advanced across the Mid CX. The stent was deployed at 12 WALESKA for 0:21 seconds. Stent balloon out over wire. Results checked. IVUS catheter inserted OTW and advanced to the CX. Measurements obtained. IVUS catheter out OTW. Inflation number : 4 A MDT NC EUPHORA RX [id number] BALLOON was prepped and advanced across the Mid CX , then inflated to 12 WALESKA for 0:14 seconds. Inflation number: 5 The MDT NC EUPHORA RX [id number] BALLOON was reinflated across the Mid CX, to 12 WALESKA for 0:11 seconds. Balloon out. Results checked. Wire out. Guide catheter out. A 5 moroccan TIG catheter in over wire. Multiple views taken of left coronary artery. ACT drawn. Results 318 seconds. Therapeutic limits - pre-heparin administration 90-150 seconds and monitoring heparin during a vascular procedure >250 seconds. Catheter removed over the exchange wire. A TR Band was successful obtaining hemostatsis at the Right Radial artery insertion site. Post Procedure: Pulses reassessed and unchanged. PERRLA. 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 No VTE prophylaxis required. Medication's Wasted: Lidocaine 1% = 18 mL. Medication's Wasted: Nitro = 49.6 mcg. Total IV fluids: 92 mL. Medication's Wasted: Heparin = 4000 units. Medication's Wasted: Other = Hydralazine 10 mg. Vital chart was stopped. Post-op diagnosis: Stent to Diag and CX. Complications: None. Estimated blood loss: 5mL-10mL. Responsiveness - Normal response to verbal stimuli; alert and oriented, PERRLA. Airway - Unaffected, no intervention required; spontaneous ventilation. Circulation: W/N/L, pulses unchanged. Nausea/Vomiting: No. Procedure completed. Patient transferred by bed to 1st floor. Access Site Site: Right Radial artery Sheath Size: 6 Fr Hemostasis Method: TR Band Hemostasis Success: Successful Procedure Medications Start: 10:45 AM Stop: 10:45 AM Medication: Versed Amount: 1 mg Route: I.V. Start: 10:45 AM Stop: 10:45 AM Medication: Fentanyl Amount: 50 mcg Route: I.V. Start: 10:49 AM Stop: 10:49 AM Medication: Benadryl Amount: 50 mg Route: I.V. Start: 10:54 AM Stop: 10:54 AM Medication: Versed Amount: 1 mg Route: I.V. Start: 10:54 AM Stop: 10:54 AM Medication: Fentanyl Amount: 50 mcg Route: I.V. Start: 11:02 AM Stop: 11:02 AM Medication: Nitrogylcerin Amount: 200 mcg Route: I.A. Start: 11:03 AM Stop: 11:03 AM Medication: Heparin Amount: 5000 units Route: I.V. Start: 11:18 AM Stop: 11:18 AM Medication: Heparin Amount: 7000 units Route: I.V. Start: 11:19 AM Stop: 11:19 AM Medication: Versed Amount: 1 mg Route: I.V. Start: 11:19 AM Stop: 11:19 AM Medication: Fentanyl Amount: 50 mcg Route: I.V. Start: 11:23 AM Stop: : AM Medication: Nitrogylcerin Amount: 200 mcg Route: I.A. Start: 11:28 AM Stop: : AM Medication: Fentanyl Amount: 50 mcg Route: I.V. Start: :35 AM Stop: AM Medication: Versed Amount: 1 mg Route: I.V. Start: :35 AM Stop: :35 AM Medication: Fentanyl Amount: 50 mcg Route: I.V. Start: 11:46 AM Stop: :46 AM Medication: Fentanyl Amount: 50 mcg Route: I.V. Start: 11:52 AM Stop: :52 AM Medication: Hydralazine Amount: 10 mg Route: I.V. Start: 11:58 AM Stop: 11:58 AM Medication: 0.9% Saline Amount: 100 ml/hr Route: I.V. drip Start: 12:03 PM Stop: 12:03 PM Medication: Plavix Amount: 600 mg Route: P.O. I, the attending physician, have reviewed and verified all procedure medications. Yes, all medications given per verbal order History/Risk Factors Hypertension: No Dyslipidemia: No Peripheral Arterial Disease (PAD): No Myocardial Infarction (IL): No Obesity: No Renal Disease: No Prior Interventions PCI: No CABG: No Valve Surgery: No Report Signatures Finalized by Michael Jalloh MD on 04/26/2024 08:05 AM
[2024-04-11] MEDS: pantoprazole DR 40 mg Tablet PO (10:20)
[2024-04-11] MEDS: losartan 50 mg Tablet PO (10:20)
[2024-04-11] MEDS: aspirin 81 mg EC Tablet PO (10:20)
--- NOTE | 2024-04-11 10:24 | P.CONIM_ITS ---
Providers/Reason For Consult 2 Consulting Physician/Specialty*: Michael Jalloh MD/ Cardiology Reason for Consult*: NSTEMI Requesting Physician: NSTEMI Attending Physician: Rafa Reaves MD Primary Care Provider: Lonny Porter MD History of Present Illness History of Present Illness Luigi Palma is a 63 year old male with no significant prior cardiac history and has a history of smoking who presented yesterday to hospital with about 2 to 3 hours of chest discomfort episodes. It felt like a sharp stabbing pain. Was quite intense initially. After having Nitropatch replaced, pain subsided. EKG did not show significant ST-T wave changes. Troponin increased from a baseline of 40 to 350 at 6 hours. Review of Systems 2 Const: Denies: fever(s), chills, body aches or change in appetite ENMT: Denies: throat pain or dental pain Card: Reports: chest pain Resp: Denies: dyspnea GI: Reports: nausea; Denies: abdominal pain or diarrhea Musc: Denies: neck pain or back pain Skin/Breast: Denies: rash Neuro: Denies: headache(s) Medications/Allergies Home Medications Medication Instructions Recorded Confirmed Last Taken Type albuterol sulfate 90 mcg/actuation 2 puff inhalation Q4H PRN 04/10/24 04/10/24 04/10/24 History aerosol inhaler Shortness Of Breath carisoprodol 350 mg tablet 350 mg PO BEDTIME 04/10/24 04/10/24 04/09/24 History diphenhydramine HCl 25 mg capsule 75 mg PO BEDTIME SLEEP 04/10/24 04/10/24 04/09/24 History (Benadryl) fluticasone propionate 115 2 puff inhalation Q12H 04/10/24 04/10/24 04/10/24 History mcg-salmeterol 21 mcg/actuation HFA inhaler (Advair HFA) ropinirole 0.5 mg tablet 0.5 mg PO BEDTIME 04/10/24 04/10/24 04/09/24 History sildenafil 100 mg tablet 100 mg PO PRN PRN Erectile 04/10/24 04/10/24 Unknown History Dysfunction tamsulosin 0.4 mg capsule 0.4 mg PO BEDTIME 04/10/24 04/10/24 04/09/24 History testosterone cypionate 200 mg/mL 200 mg IM .Q10D 04/10/24 04/10/24 03/25/24 History intramuscular oil tramadol 50 mg tablet 50 mg PO TID PRN Pain 04/10/24 04/10/24 04/10/24 History Allergies Allergy/AdvReac Type Severity Reaction Status Date / Time cephalexin [From Keflex] Allergy ALGY-Rash Verified 04/10/24 13:34 Penicillins Allergy ALGY-Rash Verified 04/10/24 13:34 Current Medications Generic Name Dose Route Start Last Admin Trade Name Freq PRN Reason Stop Dose Admin Albuterol/Ipratropium 3 ml 04/10/24 20:00 04/11/24 08:12 Ipratropium-Albuterol 3 Ml Neb INHALATION Not Given Q6H.RESP VERONICA Aspirin 81 mg 04/11/24 09:00 04/11/24 10:20 Aspirin 81 Mg Ec Tablet PO 81 mg DAILY VERONICA Administration Atorvastatin Calcium 80 mg 04/10/24 21:00 04/10/24 21:04 Atorvastatin 40 Mg Tablet PO 80 mg BEDTIME VERONICA Administration Budesonide 0.5 mg 04/10/24 20:00 04/11/24 08:12 Budesonide 0.5 Mg/2 Ml Neb INHALATION Not Given BID VERONICA Enoxaparin Sodium 120 mg 04/11/24 03:00 04/11/24 02:53 Enoxaparin 120 Mg/0.8 Ml Syringe SUBCUT 120 mg Q12H VERONICA Administration Insulin Human Lispro 0 unit 04/10/24 18:00 04/11/24 07:53 Insulin Lispro 100 Unit/1 Ml SUBCUT Not Given WM&BEDTIME VERONICA Protocol Losartan Potassium 50 mg 04/10/24 18:00 04/11/24 10:20 Losartan 50 Mg Tablet PO 50 mg DAILY VERONICA Administration Pantoprazole Sodium 40 mg 04/11/24 09:00 04/11/24 10:[address] 40 Mg Tablet PO 40 mg DAILY VERONICA Administration Ropinirole HCl 0.5 mg 04/10/24 21:00 04/10/24 20:14 Ropinirole 0.25 Mg Tablet PO 0.5 mg BEDTIME VERONICA Administration Tamsulosin HCl 0.4 mg 04/10/24 21:00 04/10/24 20:14 Tamsulosin 0.4 Mg Capsule PO 0.4 mg BEDTIME VERONICA Administration PFSH Acute 2 PFSH: Medical History Smoker Hammer toe Low testosterone in male BPH (benign prostatic hyperplasia) Surgical History Hip joint replacement status Vitals/I&O/Wt Last Vital Signs Temp 98.2 F 04/11/24 08:00 Pulse 88 04/11/24 08:00 Resp 21 H 04/11/24 08:00 BP 144/65 04/11/24 10:20 Pulse Ox 98 04/11/24 08:00 O2 Del Method Room Air 04/11/24 08:00 04/10/24 04/11/24 04/11/24 22:59 06:59 14:59 Intake Total 360 / 360 480 / 840 240 / 240 Balance 360 / 360 480 / 840 240 / 240 Weight last 48 hrs Weight 263 lb Weight 261 lb Weight 250 lb Physical Exam 2 Narrative: GENERAL: Patient is alert, awake and oriented x3. [] NECK: No jugular vein distension. [] HEENT: No cyanosis. No icterus. No pallor. [] HEART: Regular S1 and S2. No murmur, rub or gallop. [] LUNGS: Clear to auscultate bilaterally. [] CENTRAL NERVOUS SYSTEM: Grossly nonfocal. [] EXTREMITIES: Lower extremities with 1+ edema bilaterally. Data 04/11/24 03:29 04/11/24 03:29 A&P Assessment and plan (1) NSTEMI (non-ST elevated myocardial infarction): (2) Smoker: Plan Patient has presented with typical chest pain symptoms with significant increase in troponins. This presentation is consistent with non-ST elevation NC. Patient also underwent stress test that is abnormal. With his presentation with NSTEMI, we will proceed with coronary angiogram with possible PCI. Risk and benefit of the procedure been discussed with the patient and family. They understand these and want to proceed. N.p.o. for now. Echocardiogram shows mildly reduced LV systolic function with EF of 40 to 45%. Patient is currently on aspirin. Also was given Lovenox. Thank you for involving us with care of this patient. Will continue to follow. Please call with questions. Consult Attestations 2 Medical Necessity Statement: Care expected to cross 2 midnights. Coding Level of Care Code Acute Code for [facility] Diagnoses NSTEMI (non-ST elevated myocardial infarction) I21.4 Smoker F17.200
--- NOTE | 2024-04-11 10:30 | W.PM.OPSUD ---
Surgery/Procedure H&P Update DATE OF PROCEDURE: April 11, 2024 DATE H&P PERFORMED: 04/11/24 H&P UPDATE INFORMATION: I have reviewed H&P completed within last 30 days, I have examined patient prior to procedure and No changes to prior documentation PREOP DIAGNOSIS: NSTEMI PRIMARY INDICATION FOR PROCEDURE: NSTEMI PLANNED PROCEDURE: Left heart cath with possible percutaneous coronary intervention PATIENT REASSESSED PRIOR TO SEDATION, WITH NO CHANGE NOTED: Yes PHYSICAL EXAM: alert, oriented x 3, clear to auscultation bilaterally and regular rate & rhythm AIRWAY EVAL/ANESTHESIA PLAN: normal airway, ASA III, Local Anesthesia, Risks, benefits & alternatives of sedation and/or procedure discussed and Patient agrees to continue as planned ADDITIONAL INFORMATION: Moderate sedation
--- NOTE | 2024-04-11 12:44 | XR_ITS ---
WS: [id number] XR chest 1V portable [id number] REASON FOR EXAM: wheezing FINDINGS: The chest is unchanged compared to 04/10/2024. The heart and mediastinum are within normal limits. Calcified granulomatous disease in both hemithoraces. No acute or subacute pulmonary parenchymal or pleural abnormality. XR/XR chest 1V portable [id number] IMPRESSION: Stable chest without acute abnormality.
--- NOTE | 2024-04-11 13:02 | P.PN_ITS ---
Vitals/I&O/Wt Last Vital Signs Temp 98.2 F 04/11/24 08:00 Pulse 88 04/11/24 08:00 Resp 21 H 04/11/24 08:00 BP 144/65 04/11/24 10:20 Pulse Ox 98 04/11/24 08:00 O2 Del Method Room Air 04/11/24 08:00 04/10/24 04/11/24 04/11/24 22:59 06:59 14:59 Intake Total 360 / 360 480 / 840 240 / 240 Balance 360 / 360 480 / 840 240 / 240 Weight last 48 hrs Weight 119.295 kg Weight 118.388 kg Weight 113.398 kg Physical Exam 2 Narrative: General: No acute distress, AO x3, obese HEENT: PERRLA, pupils bilaterally equal and reactive Chest: Normal vesicular breath sounds, no added sounds, equal good air entry bilaterally CVS: S1-S2 regular, no murmurs, no tachycardia, no gallops, no rubs Abdomen: Soft, nontender, no organomegaly, bowel sounds present Neuro: No focal deficits, no facial deformity, AO x3, power 5/5 in all limbs Data 04/11/24 03:29 04/11/24 03:29 A&P Assessment and plan (1) NSTEMI (non-ST elevated myocardial infarction): Troponin trended up to 315 6 hours. No further chest pain. Echocardiogram done shows an EF of 40 to 45%, grade 1 diastolic dysfunction, mild global hypokinesia of mid to moderate hypokinesia of anterior wall with mild MR. Stress test positive with medium sized area of prior infarct with medium sized antwan-infarct ischemia in LAD and RCA territory. Will consult cardiology. Keep patient n.p.o. for possible cardiac angiogram today. Aspirin 81 mg daily, statin 80 mg daily. Start on metoprolol 25 mg twice daily. Continue with Lovenox 1 mg/kg body weight every 12 hourly. Appreciate A1c, lipid panel. (2) Positive cardiac stress test: (3) Hypertension: No past history of hypertension. Goal blood pressure less than 140/90 mmHg. Blood pressure is elevated for now. Losartan 50 mg oral daily, metoprolol 25 mg twice daily. Uptitrate blood pressure medications as per goal blood pressures. (4) Left ventricular systolic dysfunction (LVSD), NYHA class 1: Losartan metoprolol as above. Currently euvolemic. Check chest x-ray. Will uptitrate guideline directed heart failure medications as tolerated. Plan Full code N.p.o., cardiac diet postcardiac catheterization. Protonix OPD prophylaxis Full dose Lovenox will be sufficient for DVT prophylaxis Attestations 2 Medical Necessity Statement*: Requires further hospitalization for management of non-ST elevation IA with positive cardiac stress test requiring cardiac angiogram, high blood pressure Diagnoses NSTEMI (non-ST elevated myocardial infarction) I21.4 Positive cardiac stress test R94.39 Hypertension I10 Left ventricular systolic dysfunction (LVSD), NYHA class 1 I51.89
[2024-04-11] MEDS: ipratropium-albuterol 3 mL Neb INHALATION (13:03)
--- NOTE | 2024-04-11 13:55 | P.MISC_ITS ---
Miscellaneous Note Purpose of Documentation: Brief procedure note Note: Left main artery is patent. Proximal LAD is mild to moderate 40% stenosis. Status post IFR that is normal and no significant ischemia seen. Large sized diagonal artery has a severe 90 to 95% stenosis status post successful revascularization with 1 stent. Mid left circumflex artery has severe serial lesions. Status post successful revascularization with 1 stent. 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 Medical management. Has good collaterals from contralateral side. Recommendations: Continue aspirin and Plavix. High intensity statin therapy
[2024-04-11] MEDS: hyDRALAzine 20 mg/mL INJ 1 mL 10 MG IVP (15:33)
[2024-04-11 17:47] LABS: Glucose Point of Care 137 mg/dL (70-110)
--- NOTE | 2024-04-11 17:55 | NMCV_ITS ---
NM jami perf SPECT r/s* [id number] Louie Luigi Age: 63 Gender: M : 1960 Exam Date: 04/11/2024 06:26 Ordering Phys: Rafa Reaves MD Technologist: ANDRIA Badillo Exam Location: [facility] Indications: NSTEMI STRESS TEST Please see separate stress test report in [facility] for full findings IMAGE PROTOCOL Rest/Stress 1 Lexiscan Day Radiopharmaceutical Dose (mCi) Administration Site Administered by Rest: Tc-99m 10.6 IV ANDRIA Badillo Sestamibi Stress:Tc-99m 33.0 IV ANDRIA Badillo Sestamibi Rest: 11-Apr-2024 60 Discovery 630 Stress: 11-Apr-2024 30 Discovery 630 0.4mg Lexiscan. Supine position only as patient was unable to lay prone. SPECT RESULTS Technical Quality: Good Raw Data Analysis: Normal Image Corrections: No attenuation or motion correction applied Summed Stress Score: 13 Summed Rest Score: 11 Summed Difference Score: 3 PERFUSION FINDINGS Medium sized areas of partially reversible perfusion defects noted in apical, apical anterior, apical lateral and inferior rachel. This is consistent with medium sized area of prior infarct with medium sized areas of antwan-infarct ischemia seen in LAD and RCA territories. FUNCTIONAL RESULTS (calculated via Gated SPECT) Stress Image LV EF (%): 43 Stress EDV (mL):172 TID: 1.17 Stress ESV (mL):98 FUNCTIONAL FINDINGS: LV systolic function is mildly reduced with EF of 43%. IMPRESSIONS 1. Normal myocardial perfusion imaging with a medium sized area of prior infarct with medium sized area of antwan-infarct ischemia seen in LAD and RCA territories. 2. LV systolic function is mildly reduced with EF of 43% Mihcael Jalloh MD (Electronically Signed) Final Date: 11 April 2024 10:01 S
--- NOTE | 2024-04-11 19:30 | PC.NURSE ---
Right wrist site assessed. Above puncture site swelling is present, no bruising noted, and area is soft but tender when palpated. The site had been wrapped loosely with an juanpablo wrap. Right wrist rewrapped with juanpablo wrap for compression and right arm elevated.
--- NOTE | 2024-04-11 20:17 | USR_ITS ---
PROCEDURE INFORMATION: Exam: US Duplex Right Upper Extremity Arteries Exam date and time: 04/11/2024 8:33 PM Age: 63 years old Clinical indication: Device placement; Patient had cardiac catheterization today with the placement of two cardiac stents through the distal right radial artery. Now there is some swelling in the right wrist. I feel no thrill. Patient says the swelling is going down. ; Additional info: R/O pseudoaneurysm, right wrist TECHNIQUE: Imaging protocol: Right Real-time ultrasound scan of the arteries of the right upper extremity with 2-D stoddard scale, color Doppler flow and spectral waveform analysis. COMPARISON: No relevant prior studies available. FINDINGS: Right subclavian artery: No occlusion or significant stenosis. Normal waveform. Right axillary artery: No occlusion or significant stenosis. Normal waveform. Right brachial artery: No occlusion or significant stenosis. Normal waveform. Right radial artery: No occlusion or significant stenosis. Normal waveform. Right ulnar artery: No occlusion or significant stenosis. Normal waveform. Soft tissues: Mild soft tissue [place]. US/[place] [id number] IMPRESSION: No pseudoaneurysm seen. Mild soft tissue swelling.
--- NOTE | 2024-04-11 20:17 | PC.NURSE ---
Dr. Jalloh called to check on patients right wrist swelling. Nurse explained that it looks like it might have spread, swelling is about 2 inches wide despite juanpablo wrap. ordered arterial doppler of right wrist to r/o pseudoaneurysm.
[2024-04-11] MEDS: metoprolol tartrate 25 mg Tablet PO (21:09)
[2024-04-11] MEDS: ropinirole 0.25 mg Tablet 0.5 MG PO (21:09)
[2024-04-11] MEDS: atorvastatin 40 mg Tablet 80 MG PO (21:09)
[2024-04-11] MEDS: temazepam 15 mg Capsule PO (21:09)
[2024-04-11] MEDS: tamsulosin 0.4 mg Capsule PO (21:09)
[2024-04-11] MEDS: sodium chloride 0.9% 1,000 ML 50 ML IV (21:13)
[2024-04-12] VITALS (7 sets, daily range): BP systolic 130–155; BP diastolic 70–83; PULSE 75–88; RESP 16–22; TEMP 36.6–37.1; O2SAT 94–98
[2024-04-12] MEDS: enoxaparin 120 mg/0.8 mL Syringe SUBCUT (03:32)
[2024-04-12 04:26] LABS: Basophils # 0.1 10^3/uL (0.0-0.1); Eosinophils # 0.1 10^3/uL (0.0-0.8); Eosinophils % 1.1 %; Hematocrit 50.1 % (37-53); Lymphocytes # 1.3 10^3/uL (0.8-4.8); Lymphocytes % 13.2 %; Mean Corpuscular HGB Conc 32.5 g/dL (30-55); Mean Corpuscular Hemoglobin 28.3 pg (27-33); Mean Corpuscular Volume 87.1 fl (82-101); Mean Platelet Volume 10.3 fL (7.4-10.4); Monocytes # 1.3 10^3/uL (0.2-0.9); Monocytes % 12.4 %; Neutrophils # 7.25 10^3/uL (1.8-7.7); Neutrophils % 71.9 %; Nucleated Red Blood Cells % 0 %; Platelet Count 209 10^3/cmm (157-399); Red Blood Count 5.75 10^6/uL (3.85-5.65); Red Cell Distribution Width 14.7 % (12.1-15.1); White Blood Count 10.08 10^3/uL (3.29-11.43)
[2024-04-12 04:50] LABS: Alanine Aminotransferase 41 U/L (0-41); Albumin Level 3.8 g/dL (3.5-5.2); Alkaline Phosphatase 98 U/L (40-130); Anion Gap 17.9 (5-19); Aspartate Amino Transferase 78 U/L (0-40); Blood Urea Nitrogen 12 mg/dL (8-23); Calcium 8.5 mg/dL (8.5-10.5); Carbon Dioxide 21 mmol/L (22-29); Chloride 106 mmol/L (98-107); Creatinine Clr Calc Pharmacy 106.9526; Globulin 2.7 g/dL (1.3-4.6); Glucose 124 mg/dL (65-115); Osmolality Calculated 293 mOsm/kg (285-295); Potassium 3.9 mmol/L (3.5-5.1); Sodium 141 mmol/L (136-145); Total Bilirubin 0.6 mg/dL (0.15-1.2); Total Protein 6.5 g/dL (6.6-8.7)
[2024-04-12] MEDS: budesonide 0.5 mg/2 mL Neb INHALATION (08:05)
[2024-04-12] MEDS: ipratropium-albuterol 3 mL Neb INHALATION (08:06)
--- NOTE | 2024-04-12 08:31 | P.PN_ITS ---
Subjective 2 Subjective: Patient is doing well. no chest pain. Vitals/I&O/Wt Last Vital Signs Temp 97.8 F 04/12/24 07:31 Pulse 88 04/12/24 08:00 Resp 16 04/12/24 08:00 BP 155/83 04/12/24 07:31 Pulse Ox 98 04/12/24 08:00 O2 Del Method Room Air 04/12/24 08:00 04/11/24 04/12/24 04/12/24 22:59 06:59 14:59 Intake Total 680 / 920 Output Total 1450 / 1450 1300 / 2750 550 / 550 Balance -770 / -530 -1300 / -1830 -550 / -550 Weight last 48 hrs Weight 261 lb 3.2 oz Weight 263 lb Weight 263 lb Weight 261 lb Weight 250 lb Physical Exam 2 Narrative: GENERAL: Patient is alert, awake and oriented x3. [] NECK: No jugular vein distension. [] HEENT: No cyanosis. No icterus. No pallor. [] HEART: Regular S1 and S2. No murmur, rub or gallop. [] LUNGS: Clear to auscultate bilaterally. [] CENTRAL NERVOUS SYSTEM: Grossly nonfocal. [] EXTREMITIES: Lower extremities with 1+ edema bilaterally. Data 04/12/24 03:27 04/12/24 03:27 A&P Assessment and plan (1) NSTEMI (non-ST elevated myocardial infarction): (2) Smoker: Plan Patient underwent successful revascularization of large sized diagonal artery with 1 stent and left circumflex artery with 1 stent. LAD has moderate disease and IFR was negative for ischemia. Dual antiplatelet therapy with aspirin Plavix Thank you for involving us with care of this patient. Patient is stable to be discharged from cardiology standpoint. Please call with questions. Attestations 2 Medical Necessity Statement*: Care expected to cross 2 midnights. Coding Level of Care Code Acute Code for [facility] Diagnoses NSTEMI (non-ST elevated myocardial infarction) I21.4 Smoker F17.200
[2024-04-12] MEDS: clopidogrel 75 mg Tablet PO (08:59)
[2024-04-12] MEDS: pantoprazole DR 40 mg Tablet PO (08:59)
[2024-04-12] MEDS: aspirin 81 mg EC Tablet PO (08:59)
[2024-04-12] MEDS: losartan 50 mg Tablet PO (09:00)
[2024-04-12] MEDS: metoprolol tartrate 25 mg Tablet PO (09:08)
--- NOTE | 2024-04-12 10:50 | PM.DCS ---
Discharge Providers Date of Admission: 04/10/24 15:32 Date of Discharge: April 12, 2024 Attending Provider at Admission: Rafa Reaves MD Attending Provider at Discharge: Rafa Reaves MD Consults: Cardiology: Dr. Mike Primary Care Provider: Lonny Porter MD Diagnoses at Discharge Discharge Diagnosis (1) NSTEMI (non-ST elevated myocardial infarction): Status: Acute (2) Positive cardiac stress test: Status: Acute (3) Hypertension: Status: Acute (4) Left ventricular systolic dysfunction (LVSD), NYHA class 1: Status: Acute Reason for Visit Reason for Visit: cp Hospital Course Hospital Course Luigi Palma is a 63 year old male with past medical history of BPH, chronic smoker (1-1/2 pack/day for more than 10 years) presents to the ER today because of retrosternal chest pain radiated to bilateral jaw and left shoulder which started while he was working in his backyard and trimming his trees associated with nausea and diaphoresis getting relieved with nitro patch in the ER. Patient denies any personal history of CAD or CVA but does have a history of CVA and grandmother. He was admitted to the hospital further evaluation and management of non-ST elevation CA. He was started on treatment as per ACS protocol. He remained chest pain-free. Underwent cardiac stress test on 04/11 which showed medium sized area of partially reversible perfusion defect in apical, apical anterior and apical lateral and inferior wall consistent with medium sized prior infarct with medium sized antwan-infarct ischemia in LAD and RCA territory. Echocardiogram was done which showed mild global LV hypokinesia along with EF 40 to 45% grade 1 diastolic dysfunction. Cardiology was consulted and he underwent cardiac angiogram on which findings are as below. Left main artery is patent. Proximal LAD is mild to moderate 40% stenosis. Status post IFR that is normal and no significant ischemia seen. Large sized diagonal artery has a severe 90 to 95% stenosis status post successful revascularization with 1 stent. Mid left circumflex artery has severe serial lesions. Status post successful revascularization with 1 stent. 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 Medical management. Has good collaterals from contralateral side. Patient received 2 CONNER. His hospitalization was otherwise unremarkable other than episodes of hypotension for which his antihypertensives were adjusted. Patient did have mild swelling of his right arm from where cardiac angiogram was done. Upper limb Dopplers were done which were negative for acute abnormality. He has been discharged in hemodynamically stable condition on new medications including aspirin, Plavix, statin, Coreg and losartan. Physical Exam Narrative: General: No acute distress, AO x3, obese HEENT: PERRLA, pupils bilaterally equal and reactive Chest: Normal vesicular breath sounds, no added sounds, equal good air entry bilaterally CVS: S1-S2 regular, no murmurs, no tachycardia, no gallops, no rubs Abdomen: Soft, nontender, no organomegaly, bowel sounds present Neuro: No focal deficits, no facial deformity, AO x3, power 5/5 in all limbs Discharge Data Studies Completed and Pending Completed Studies During Hospitalization Category Date Time Status Sestamibi Stress Test Request Routine Exams 04/10/24 17:55 Draft XR chest 1V portable [id number] Stat Exams 04/10/24 13:22 Completed XR chest 1V portable [id number] Stat Exams 04/11/24 12:44 Completed NM jami perf SPECT r/s* [id number] Routine Nuc Med 04/11/24 17:55 [place] [id number] Routine Ultrasound 04/11/24 20:17 Completed CV. 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 Duplex Scan Upper Extremity Artery 04/11/24 20:17 IMPRESSION: No pseudoaneurysm seen. Mild soft tissue swelling. Echocardiogram: CONCLUSIONS LV systolic function is mildly reduced with EF of 40 to 45%. Above-mentioned regional wall motion abnormalities. Grade 1 diastolic dysfunction. Mild mitral regurgitation Moderate aortic regurgitation Mild tricuspid regurgitation No comparison studies are available Michael Jalloh MD (Electronically Signed) Final Date: 11 April 2024 Laboratory Results WBC 10.08 10^3/uL (3.29-11.43) 04/12/24 03:27 RBC 5.75 10^6/uL (3.85-5.65) H 04/12/24 03:27 Hgb 16.30 g/dL (11.27-16.99) 04/12/24 03:27 Hct 50.1 % (37-53) 04/12/24 03:27 MCV 87.1 fl (82-101) 04/12/24 03:27 MCH 28.3 pg (27-33) 04/12/24 03:27 MCHC 32.5 g/dL (30-55) 04/12/24 03:27 RDW 14.7 % (12.1-15.1) 04/12/24 03:27 Plt Count 209 10^3/cmm (157-399) 04/12/24 03:27 MPV 10.3 fL (7.4-10.4) 04/12/24 03:27 Neut % (Auto) 71.9 % 04/12/24 03:27 Lymph % (Auto) 13.2 % 04/12/24 03:27 [place] % (Auto) 12.4 % 04/12/24 03:27 Eos % (Auto) 1.1 % 04/12/24 03:27 Baso % (Auto) 1.0 % 04/12/24 03:27 Neut # (Auto) 7.25 10^3/uL (1.8-7.7) 04/12/24 03:27 Lymph # (Auto) 1.3 10^3/uL (0.8-4.8) 04/12/24 03:27 [place] # (Auto) 1.3 10^3/uL (0.2-0.9) H 04/12/24 03:27 Eos # (Auto) 0.1 10^3/uL (0.0-0.8) 04/12/24 03:27 Baso # (Auto) 0.1 10^3/uL (0.0-0.1) 04/12/24 03:27 Nucleated RBC % (auto) 0 % 04/12/24 03:27 Nucleated RBCs # 0.0 /100WBC 04/12/24 03:27 PT 12.70 SECONDS (12.1-14.9) 04/10/24 14:09 INR 0.92 (0.8-1.2) 04/10/24 14:09 Sodium 141 mmol/L (136-145) 04/12/24 03:27 Potassium 3.9 mmol/L (3.5-5.1) 04/12/24 03:27 Chloride 106 mmol/L (98-107) 04/12/24 03:27 Carbon Dioxide 21 mmol/L (22-29) L 04/12/24 03:27 Anion Gap 17.9 (5-19) 04/12/24 03:27 BUN 12 mg/dL (8-23) 04/12/24 03:27 Creatinine 0.9 mg/dL (0.7-1.2) 04/12/24 03:27 GFR Calculation 85.0 mL/min (90-130) L 04/12/24 03:27 Glucose 124 mg/dL (65-115) H 04/12/24 03:27 POC Glucose 137 mg/dL (70-110) H 04/11/24 16:32 Estimat Average Glucose 117 04/11/24 03:29 Hemoglobin A1c 5.7 % (4.0-6.0) 04/11/24 03:29 Calculated Osmolality 293 mOsm/kg (285-295) 04/12/24 03:27 Calcium 8.5 mg/dL (8.5-10.5) 04/12/24 03:27 Phosphorus 3.3 mg/dL (2.5-4.5) 04/11/24 03:29 Magnesium 2.2 mg/dL (1.7-2.3) 04/11/24 03:29 Iron 35 ug/dL (59-158) L 04/10/24 18:32 TIBC 379 mcg/dl 04/10/24 18:32 % Saturation 9.2 % (20-50) L 04/10/24 18:32 Unsat Iron Binding 344 ug/dL (112-347) 04/10/24 18:32 Total Bilirubin 0.6 mg/dL (0.15-1.2) 04/12/24 03:27 AST 78 U/L (0-40) H 04/12/24 03:27 ALT 41 U/L (0-41) 04/12/24 03:27 Alkaline Phosphatase 98 U/L (40-130) 04/12/24 03:27 Troponin T Baseline 40 ng/L (0-15) H 04/10/24 13:52 Troponin T Hi Sens 6Hr 350.5 ng/L (0-15) H 04/10/24 20:01 Troponin T Hi Sens 6Hr Delta 310.5 ng/L (0-12) H* 04/10/24 20:01 Total Protein 6.5 g/dL (6.6-8.7) L 04/12/24 03:27 Albumin 3.8 g/dL (3.5-5.2) 04/12/24 03:27 Globulin 2.7 g/dL (1.3-4.6) 04/12/24 03:27 Triglycerides 177 mg/dL (0-150) H 04/11/24 03:29 Cholesterol 111 mg/dL (0-200) 04/11/24 03:29 LDL Cholesterol, Calc 42 mg/dL (50-129) L 04/11/24 03:29 HDL Cholesterol 34 mg/dL (60-100) L 04/11/24 03:29 LDL/HDL Ratio 1.24 RATIO (0.00-3.22) 04/11/24 03:29 Cholesterol/HDL Ratio 3.26 mg/dL (1.0-5.00) 04/11/24 03:29 Lipase 15 U/L (13-60) 04/10/24 13:52 Vitamin B12 523 pg/mL (232-1245) 04/10/24 18:32 Folate > 20.0 ng/mL (4.5-32.2) 04/11/24 03:29 Procalcitonin 0.04 ng/mL (0-0.5) 04/10/24 18:32 TSH 1.73 uIU/mL (0.27-4.20) 04/10/24 18:32 Urine Color Yellow (Yellow) 04/11/24 01:55 Urine Appearance Clear (CLEAR) 04/11/24 01:55 Urine pH 6.0 (5-7) 04/11/24 01:55 Ur Specific [place] 1.011 (1.005-1.030) 04/11/24 01:55 Urine Protein Negative (Negative) 04/11/24 01:55 Urine Glucose (UA) Negative (Normal) 04/11/24 01:55 Urine Ketones Trace (Negative) 04/11/24 01:55 Urine Blood Trace (Negative) A 04/11/24 01:55 Urine Nitrate Negative (Negative) 04/11/24 01:55 Urine Bilirubin Negative (Negative) 04/11/24 01:55 Urine Urobilinogen 0.2 mg/dL (Negative) 04/11/24 01:55 Ur Leukocyte Esterase Negative (Negative) 04/11/24 01:55 Urine RBC 0-2 /hpf (0-2) 04/11/24 01:55 Urine WBC 0-5 /hpf (0-5) 04/11/24 01:55 Ur Squamous Epith Cells 0-5 /hpf (0-5) 04/11/24 01:55 Amorphous Sediment Not Reportable 04/11/24 01:55 Urine Bacteria None seen /hpf (NONE) 04/11/24 01:55 Hyaline Casts 0.40 /lpf 04/11/24 01:55 Vitals Last Vital Signs Temp 97.8 F 04/12/24 07:31 Pulse 88 04/12/24 08:00 Resp 16 04/12/24 08:00 BP 155/83 04/12/24 09:00 Pulse Ox 98 04/12/24 08:00 O2 Del Method Room Air 04/12/24 08:00 Discharge Plan Discharge Patient Disposition: Home Condition: Stable Prescriptions: New losartan 50 mg Tablet 50 mg PO DAILY Qty: 30 0RF atorvastatin 40 mg Tablet 80 mg PO BEDTIME Qty: 60 0RF aspirin 81 mg Tablet,Delayed Release (Dr/Ec) 81 mg PO DAILY Qty: 30 0RF clopidogrel 75 mg Tablet 75 mg PO DAILY Qty: 30 0RF pantoprazole 40 mg Tablet,Delayed Release (Dr/Ec) 40 mg PO DAILY Qty: 30 0RF Coreg 3.125 mg tablet 3.125 mg PO BID Qty: 60 0RF Rx Instructions: must administer with a meal/food Continued carisoprodol 350 mg tablet 350 mg PO BEDTIME tramadol 50 mg tablet 50 mg PO TID PRN (Reason: Pain) sildenafil 100 mg tablet 100 mg PO PRN PRN (Reason: Erectile Dysfunction) tamsulosin 0.4 mg capsule 0.4 mg PO BEDTIME ropinirole 0.5 mg tablet 0.5 mg PO BEDTIME testosterone cypionate 200 mg/mL oil 200 mg IM .Q10D albuterol sulfate 90 mcg/actuation HFA aerosol inhaler 2 puff INHALATION Q4H PRN (Reason: Shortness Of Breath) Advair HFA 115-21 mcg/actuation HFA aerosol inhaler 2 puff INHALATION Q12H Benadryl 25 mg Capsule 75 mg PO BEDTIME Discharge Orders: Discharge Order (Routine); Ordered 04/12/24 Ordered By: Rafa Reaves Referrals: Andie Stern FNP [Nurse Practitioner] - 04/25/24 2:30 pm Lonny Porter MD [Primary Care Provider] - (Patient prefers to schedule his own appointment with primary care. ) Discharge Diet: Cardiac Discharge Activity: Resume usual activity and Increase activity as tolerated Patient Instructions: Aspirin (By mouth), Losartan (By mouth), Atorvastatin (By mouth), Carvedilol (By mouth), Clopidogrel (By mouth) (Plavix), Pantoprazole (By mouth) (Protonix), Coronary Angioplasty (DC), Opioid Safety, Post Angiogram Home Care Instructions Activity Restrictions/Additional Instructions: Check blood pressures daily and maintain blood pressure diary. Goal blood pressure is less than 140/90 mmHg. Some new medications including aspirin, Plavix which are for the stent daily along with atorvastatin which is a cholesterol medication 80 mg daily. You are also on losartan 50 mg and Coreg twice daily for high blood pressure Discharge Attestations Time Spent in Discharge Care*: greater than 30 min Specific Discharge Activities: educating patient, educating and/or supporting family/caregiver, discussing with pcp/other providers, discussing with mental health case manager/social workers/dc planners, documenting/other paperwork and evaluating patient/reviewing data Status at Discharge: Cognitive status at discharge: cognitively intact, Behavioral status at discharge: cooperative, Functional status at discharge: independent ambulation, Overall status at discharge: patient is back to baseline Quality Metrics Clinical Quality Measures [ No reported AMI, CVA or VTE this stay] Coding Level of Care Code 19097 Total time (in minutes) for Discharge: 60 Diagnoses NSTEMI (non-ST elevated myocardial infarction) I21.4 Positive cardiac stress test R94.39 Hypertension I10 Left ventricular systolic dysfunction (LVSD), NYHA class 1 I51.89
== END 2024-04-12 10:22 | disposition home or self-care (01) ==
LOC: ER 14:13 → CSU 15:33
PROVIDERS: Internal Medicine; Admitting Provider Student in an Organized Health Care Education/Training Program; Emergency Provider Emergency Medicine; PCP Family Medicine; Visit Provider Student in an Organized Health Care Education/Training Program
DX: I21.4 Non-ST elevation (NSTEMI) myocardial infarction (principal); I25.10 Atherosclerotic heart disease of native coronary artery without angina pectoris; R94.39 Abnormal result of other cardiovascular function study; I10 Essential (primary) hypertension; I51.89 Other ill-defined heart diseases; I11.9 Hypertensive heart disease without heart failure; N40.0 Benign prostatic hyperplasia without lower urinary tract symptoms; F17.210 Nicotine dependence, cigarettes, uncomplicated; Z79.82 Long term (current) use of aspirin; I25.2 Old myocardial infarction
CPT/HCPCS: 36415; 36416; 71045; 78452; 80053; 80061; 81003; 81015; 82607; 82746; 82962; 83036; 83540; 83550; 83690; 83735; 84100; 84145; 84443; 84484; 85025; 85347; 85610; 92978; 93005; 93017; 93306; 93454; 93571; 93931; 94640; 94664; 96361; 96372; 96374; 96375; 96376; 99152; 99153; 99285; A9500; C1725; C1753; C1769; C1874; C1887; C1894; C9600; C9601; G0378; J0360; J1200; J1644; J1650; J2250; J2270; J2405; J2785; J3010; J3490; J7030; J7626; Q9967

== ENCOUNTER 2024-07-26 06:46 | Outpatient (CLI) | payer OTHER, SELFPAY ==
--- NOTE | 2024-07-26 07:00 | USCV_ITS ---
Luigi Palma Age: 64 Gender: M : 1960 Exam Date: 07/26/2024 06:56 Ordering Phys: Andie Stern Technologist: Exam Location: [facility] [place] Indication: ef BP: 118 / 70 HR: Rhythm: Sinus Technical Quality: Adequate MEASUREMENTS (Male / Female) Normal Values 2D ECHO LV Diastolic Diameter PLAX 4.7 cm 4.2 - 5.9 / 3.9 - 5.3 cm IVS Diastolic Thickness 1.4 cm 0.6 - 1.0 / 0.6 - 0.9 cm IVS Systolic Thickness 1.6 cm LVPW Diastolic Thickness 1.5 cm 0.6 - 1.0 / 0.6 - 0.9 cm LVPW Systolic Thickness 1.9 cm LVOT Diameter 2.1 cm LV Ejection Fraction 2D Teich 68.1 % LV Ejection Fraction MOD 4C 55.5 % LV Ejection Fraction MOD 2C 61.7 % LV Ejection Fraction 2C AL 61.5 % LA Diameter 3.0 cm RA Systolic Volume 4C AL 33.3 ml RA Systolic Volume 4C MOD 32.7 ml Aorta at Sinotubular Diameter 3.0 cm FINDINGS Left Ventricle Right Ventricle Right Atrium Left Atrium Mitral Valve Aortic Valve Tricuspid Valve Pulmonic Valve Pericardium Aorta IVC CONCLUSIONS Limited echocardiogram performed to assess LV systolic function. LV systolic function is normal with EF of 55 to 60%. No significant regional wall motion abnormalities. Compared to prior echocardiogram from 04/2024, LV systolic function has improved and is normal now. Michael Jalloh MD (Electronically Signed) Final Date: 30 July 2024 13:15 S
== END 2024-07-26 06:47 | disposition home or self-care (01) ==
LOC: RAD 06:47
PROVIDERS: PCP Family Medicine; Visit Provider Nurse Practitioner Family
DX: I25.10 Atherosclerotic heart disease of native coronary artery without angina pectoris (principal)
CPT/HCPCS: 93308

== ENCOUNTER 2024-09-20 08:59 | Outpatient (CLI) | payer MEDICARE, SELFPAY ==
[2024-09-20 09:15] VITALS: PULSE 89; RESP 18; O2SAT 99
[2024-09-20] MEDS: albuterol 2.5 mg/3 mL Neb INHALATION (09:15)
[2024-09-20 09:20] VITALS: PULSE 86
== END 2024-09-20 09:00 | disposition home or self-care (01) ==
LOC: RT 09:01
PROVIDERS: PCP Family Medicine; Visit Provider Family Medicine
DX: R06.00 Dyspnea, unspecified (principal)
CPT/HCPCS: 94060; J7613

== ENCOUNTER 2024-10-10 09:28 | Outpatient (RCR) | payer MEDICARE, SELFPAY | END 2024-11-03 23:59 | disposition home or self-care (01) | LOC: CR 09:28 | PROVIDERS: PCP Family Medicine; Referring Provider Nurse Practitioner Family; Visit Provider Nurse Practitioner Family | DX: Z95.5 Presence of coronary angioplasty implant and graft (principal) | CPT/HCPCS: 93798 ==

== ENCOUNTER 2024-11-04 13:23 | Outpatient (RCR) | payer MEDICARE, SELFPAY | END 2024-12-04 23:59 | disposition home or self-care (01) | LOC: CR 13:23 | PROVIDERS: PCP Family Medicine; Referring Provider Nurse Practitioner Family; Visit Provider Nurse Practitioner Family | DX: Z95.5 Presence of coronary angioplasty implant and graft (principal) | CPT/HCPCS: 93798 ==

== ENCOUNTER → 2024-11-21 09:03 | Outpatient (BNVA) | payer MEDICARE, SELFPAY | PROVIDERS: PCP Family Medicine; Visit Provider Internal Medicine Cardiovascular Disease | DX: I25.10 Atherosclerotic heart disease of native coronary artery without angina pectoris (principal); Z79.01 Long term (current) use of anticoagulants; I10 Essential (primary) hypertension; I25.9 Chronic ischemic heart disease, unspecified; Z95.5 Presence of coronary angioplasty implant and graft; I25.2 Old myocardial infarction; Z87.891 Personal history of nicotine dependence | CPT/HCPCS: 99214 ==

== ENCOUNTER 2024-12-05 12:12 | Outpatient (RCR) | payer MEDICARE, SELFPAY | END 2025-01-03 23:59 | disposition home or self-care (01) | LOC: CR 12:12 | PROVIDERS: PCP Family Medicine; Referring Provider Nurse Practitioner Family; Visit Provider Nurse Practitioner Family | DX: Z95.5 Presence of coronary angioplasty implant and graft (principal) | CPT/HCPCS: 93798 ==

== ENCOUNTER 2025-01-04 09:34 | Outpatient (RCR) | payer MEDICARE, SELFPAY | END 2025-02-03 23:59 | disposition home or self-care (01) | LOC: CR 09:34 | PROVIDERS: PCP Family Medicine; Referring Provider Nurse Practitioner Family; Visit Provider Nurse Practitioner Family | DX: Z95.5 Presence of coronary angioplasty implant and graft (principal) | CPT/HCPCS: 93798 ==

== ENCOUNTER 2025-02-08 09:45 | Outpatient (RCR) | payer MEDICARE, SELFPAY | END 2025-03-05 23:59 | disposition home or self-care (01) | LOC: CR 09:45 | PROVIDERS: PCP Family Medicine; Referring Provider Nurse Practitioner Family; Visit Provider Nurse Practitioner Family | DX: Z95.5 Presence of coronary angioplasty implant and graft (principal) | CPT/HCPCS: 93798 ==

== ENCOUNTER → 2025-06-01 09:52 | Outpatient (BNVA) | payer MEDICARE, SELFPAY | PROVIDERS: PCP Family Medicine; Visit Provider Internal Medicine Cardiovascular Disease | DX: I11.9 Hypertensive heart disease without heart failure (principal); I25.5 Ischemic cardiomyopathy; E78.5 Hyperlipidemia, unspecified; F17.210 Nicotine dependence, cigarettes, uncomplicated | CPT/HCPCS: 99214 ==